=== PATIENT | female | born 2000 | race Two or more races ===

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

== ENCOUNTER 2020-09-06 20:28 | Emergency (ER) | payer MEDICAID, OTHER ==
[~2020-09-06] VITALS: Ht 170.2 cm; Wt 56.7 kg
[2020-09-06 21:56] LABS: Basophils # (auto) 0.1 10 ^3/uL (0-0.2); Eosinophils # (auto) 0.3 10 ^3/uL (0-0.8); Eosinophils % (auto) 4.3 % (0.0-7.0); Hematocrit 35.3 % (36.0-46.0); Lymphocytes % (auto) 25.2 % (10.0-50.0); Mean Corpuscular Hemoglobin 27.3 pg (28.0-32.0); Mean Corpuscular Hgb Conc. 33.9 g/dL (32.0-36.0); Mean Corpuscular Volume 80.4 fL (80.0-100.0); Monocytes # (auto) 0.5 10 ^3/uL (0-1.3); Monocytes % (auto) 6.1 % (0.0-12.0); Neutrophils # (auto) 4.9 10 ^3/uL (1.6-8.6); Neutrophils % (auto) 63.4 % (37.0-80.0); Nucleated Red Blood Cells % 0.1 %; Red Blood Cells 4.39 10^6/uL (4.0-5.20); Red Cell Distribution Width 14.6 % (11.8-14.3); White Blood Cell 7.8 10^3/uL (4.4-10.8)
[2020-09-06 22:15] LABS: Albumin 3.7 g/dL (3.4-5.0); Amylase 44 U/L (25-115); Anion Gap 11 (5-15); Blood Urea Nitrogen 12 mg/dL (7-18); Calcium 9.3 mg/dL (8.5-10.1); Carbon Dioxide 22 mmol/L (21-32); Chloride 107 mmol/L (98-107); Glucose 81 mg/dL (74-106); Lipase 16 U/L (73-393); Potassium 3.5 mmol/L (3.5-5.1); Sodium 140 mmol/L (136-145)
[2020-09-06 22:17] LABS: Alanine Aminotransferase 25 U/L (13-56); Aspartate Aminotransferase 21 U/L (15-37); BUN/Creatinine Ratio 17.1; GFR African American 137 mL/min; GFR Non-African American 113 mL/min
[2020-09-06 22:26] LABS: Alkaline Phosphatase 80 U/L (45-117); Bilirubin, Total 0.6 mg/dL (0.2-1.0)
[2020-09-07 01:00] VITALS: BP 116/56
== END 2020-09-07 02:19 | disposition home or self-care (01) ==
LOC: EDBD 20:28 → ER 20:28
DX: D64.9 Anemia, unspecified (principal)
CPT/HCPCS: 36415; 80053; 82150; 83605; 83690; 83735; 84702; 85025